=== PATIENT | male | born 1980 | race Hispanic/Latino ===

== ENCOUNTER 2018-08-09 07:10 | Emergency (ER) | payer SELFPAY ==
[2018-08-09] MEDS ORDERED: PANTOPRAZOLE 40 MG INJ ONE (07:32)
[2018-08-09] MEDS ORDERED: KETOROLAC 30 MG/ML INJ ONE (07:32)
[2018-08-09] MEDS ORDERED: NA CHLORIDE 0.9% 1,000 ML ONE (07:32)
[2018-08-09 07:43] LABS: Absolute Lymphocytes (CBC) 0.8 K/uL (0.7-4.9); Absolute Monocytes 0.6 K/uL (0.1-1.3); Absolute Neutrophil 5.4 K/uL (1.8-8.0); Basophils % 0.3 % (0-1.3); Eosinophils % 0.2 % (0-4.4); Hematocrit 43.9 % (39.6-49.0); Lymphocytes % 11.7 % (15.3-44.8); MCV 82.8 fL (80-100); MPV 9.2 fL (7.6-11.3); Monocytes % 8.8 % (3.3-12.3)
[2018-08-09 07:56] LABS: Albumin 3.5 g/dL (3.4-5.0); Bilirubin Direct 0.1 mg/dL (0-0.2); Bilirubin Total 0.4 mg/dL (0.2-1.0); Potassium 3.5 mmol/L (3.5-5.1); Protein, Total 7.8 g/dL (6.4-8.2)
--- NOTE | 2018-08-09 08:37 | RAD REPORT ---
EXAM DESCRIPTION: US - Abdomen Exam Limited - 08/09/2018 7:55 am CLINICAL HISTORY: Abdominal pain. COMPARISON: None. FINDINGS: Multiple gallstones are seen with small amount of sludge. The gallbladder wall is borderli ne thickened. The evaluation of the biliary tree is suboptimal IMPRESSION: Cholelithiasis. Borderline gallbladder wall thickening may indicate cholecystitis Suboptimal evaluation of the biliary tree
--- NOTE | 2018-08-09 09:02 | EDPHYS ---
Physician Documentation [facility] Name: Ja Ramirez Age: 38 yrs Sex: Male : 1980 Arrival Date: 08/09/2018 Time: 07:12 Bed 16 Private MD: ED Physician Rubio Salcido HPI: 08/09 07:29 This 38 yrs old Male presents to ER via Ambulatory with complaints of kb Abdominal Pain. 07:29 The patient presents with abdominal pain in the right upper quadrant. Onset: The kb symptoms/episode began/occurred this morning, at 03:00. The symptoms do not radiate. Associated signs and symptoms: Pertinent positives: diarrhea. The symptoms are described as constant, sharp. Modifying factors: The symptoms are alleviated by nothing, the symptoms are aggravated by pressure. Severity of pain: At its worst the pain was moderate in the emergency department the pain is unchanged. The patient has not experienced similar symptoms in the past. The patient has not recently seen a physician. Pt reports RUQ pain that woke him up at 0300. Had diarrhea for the last 2 days, now resolved. Denies similar symptoms in the past. Pt has not tried to eat or drink anything to determine if it makes pain worse. Pain the same in all positions.. Historical: - Allergies: 07:13 No Known Allergies; la1 - Home Meds: 07:13 None [Active]; la1 - PMHx: 07:13 None; la1 - PSHx: 07:13 None; la1 - Immunization history:: Adult Immunizations up to date. - Social history:: Smoking status: Patient/guardian denies using tobacco. - Ebola Screening: : No symptoms or risks identified at this time. ROS: 07:28 Constitutional: Negative for fever, chills, and weight loss, Cardiovascular: Negative kb for chest pain, palpitations, and edema, Respiratory: Negative for shortness of breath, cough, wheezing, and pleuritic chest pain, Back: Negative for injury and pain, : Negative for injury, bleeding, discharge, and swelling, MS/Extremity: Negative for injury and deformity, Skin: Negative for injury, rash, and discoloration, Neuro: Negative for headache, weakness, numbness, tingling, and seizure. 07:28 Abdomen/GI: Positive for abdominal pain, diarrhea, Negative for nausea and vomiting, constipation, abdominal cramps, abdominal distension. Exam: 07:28 Constitutional: This is a well developed, well nourished patient who is awake, alert, kb and in no acute distress. Head/Face: Normocephalic, atraumatic. Chest/axilla: Normal chest wall appearance and motion. Nontender with no deformity. No lesions are appreciated. Cardiovascular: Regular rate and rhythm with a normal S1 and S2. No gallops, murmurs, or rubs. Normal PMI, no JVD. No pulse deficits. Respiratory: Lungs have equal breath sounds bilaterally, clear to auscultation and percussion. No rales, rhonchi or wheezes noted. No increased work of breathing, no retractions or nasal flaring. Back: No spinal tenderness. No costovertebral tenderness. Full range of motion. Skin: Warm, dry with normal turgor. Normal color with no rashes, no lesions, and no evidence of cellulitis. MS/ Extremity: Pulses equal, no cyanosis. Neurovascular intact. Full, normal range of motion. Neuro: Awake and alert, GCS 15, oriented to person, place, time, and situation. Cranial nerves II-XII grossly intact. Motor strength 5/5 in all extremities. Sensory grossly intact. Cerebellar exam normal. Normal gait. 07:28 Abdomen/GI: Inspection: abdomen appears normal, Bowel sounds: normal, in all quadrants, Palpation: soft, in all quadrants, nontender, in the left upper quadrant, right lower quadrant and left lower quadrant, moderate abdominal tenderness, in the right upper quadrant. Vital Signs: 07:14 Pulse 86; Resp 16; Temp 99.2; Pulse Ox 98% on R/A; Weight 117.93 kg; Height 5 ft. 7 in. la1 (170.18 cm); Pain 8/10; 07:16 BP 128 / 81; la1 09:20 BP 122 / 87; Pulse 78; Resp 16; Temp 98.3; Pulse Ox 98% on R/A; la1 07:14 Body Mass Index 40.72 (117.93 kg, 170.18 cm) la1 MDM: 07:14 Patient medically screened. kb 07:28 Data reviewed: vital signs, nurses notes. Data interpreted: Pulse oximetry: on room air kb is 98 %. Interpretation: normal. 09:00 Data reviewed: I have discussed the patient's presentation/case with the attending Emergency Department Physician;. Counseling: I had a detailed discussion with the patient and/or guardian regarding: the historical points, exam findings, and any diagnostic results supporting the discharge/admit diagnosis, lab results, radiology results, the need for outpatient follow up, a general surgeon, to return to the emergency department if symptoms worsen or persist or if there are any questions or concerns that arise at home. ED course: Pain is resolved after toradol. Pt has no complaints at this time. Will discharge home to follow up with General Surgery. . 08/09 07:19 Order name: Basic Metabolic Panel kb 08/09 07:19 Order name: CBC with Diff kb 08/09 07:19 Order name: Hepatic Function; Complete Time: 08:08 kb 08/09 07:19 Order name: Lipase; Complete Time: 08:08 kb 08/09 07:20 Order name: Basic Metabolic Panel; Complete Time: 08:08 EDMS 08/09 07:20 Order name: CBC with Automated Diff; Complete Time: 08:08 EDMS 08/09 07:19 Order name: IV Saline Lock; Complete Time: 07:24 kb 08/09 07:19 Order name: Labs collected and sent; Complete Time: 07:24 kb 08/09 07:19 Order name: US Abdomen Limited; Complete Time: 08:42 kb Administered Medications: 07:43 Drug: NS 0.9% 1000 ml Route: IV; Rate: 1000 ml; Site: left antecubital; la1 09:21 Follow up: IV Status: Completed infusion la1 07:43 Drug: ProTONIX 40 mg Route: IVP; Site: left antecubital; la1 09:21 Follow up: Response: No adverse reaction la1 07:43 Drug: TORadol 30 mg Route: IVP; Site: left antecubital; la1 09:20 Follow up: Response: No adverse reaction la1 Disposition: 16:15 Co-signature as Attending Physician, Rubio Salcido MD I agree with the assessment and kdr plan of care. Disposition: 08/09/18 09:01 Discharged to Home. Impression: Cholelithiasis. - Condition is Stable. - Discharge Instructions: Cholelithiasis, Dbde-cr-Arcp. - Prescriptions for Bentyl 20 mg Oral Tablet - take 1 tablet by ORAL route every 6 hours As needed; 20 tablet. Zofran 4 mg Oral Tablet - take 1 tablet by ORAL route every 6 hours As needed; 20 tablet. Diclofenac Sodium 75 mg Oral Tablet, Delayed Release (E.C.) - take 1 tablet by ORAL route 2 times per day As needed; 30 tablet. - Medication Reconciliation Form, Thank You Letter, Antibiotic Education, Prescription Opioid Use form. - Follow up: Emergency Department; When: As needed; Reason: Worsening of condition. Follow up: Private Physician; When: 2 - 3 days; Reason: Recheck today's complaints, Continuance of care, Re-evaluation by your physician. Signatures: Dispatcher [employer] EDMS Nuzhat Garcia, TITLE INSURANCE EXAMINER-C TITLE INSURANCE EXAMINER-Ckb Rubio Salcido MD MD kdr Attema, Lee, RN RN la1 Corrections: (The following items were deleted from the chart) 09:21 09:01 08/09/2018 09:01 Discharged to Home. Impression: Cholelithiasis. Condition is la1 Stable. Forms are Medication Reconciliation Form, Thank You Letter, Antibiotic Education, Prescription Opioid Use. Follow up: Emergency Department; When: As needed; Reason: Worsening of condition. Follow up: Private Physician; When: 2 - 3 days; Reason: Recheck today's complaints, Continuance of care, Re-evaluation by your physician. kb
--- NOTE | 2018-08-09 09:02 | ER ---
Nurse's Notes [facility] Name: Ja Ramirez Age: 38 yrs Sex: Male : 1980 Arrival Date: 08/09/2018 Time: 07:12 Bed 16 Private MD: Diagnosis: Cholelithiasis Presentation: 08/09 07:13 Presenting complaint: Patient states: RUQ pain that woke me up last night, yesterday I la1 had headache and diarrhea. Transition of care: patient was not received from another setting of care. Onset of symptoms was August 09, 2018. Risk Assessment: Do you want to hurt yourself or someone else? Patient reports no desire to harm self or others. Initial Sepsis Screen: Does the patient meet any 2 criteria? No. Patient's initial sepsis screen is negative. Does the patient have a suspected source of infection? No. Patient's initial sepsis screen is negative. Care prior to arrival: None. 07:13 Method Of Arrival: Ambulatory la1 07:13 Acuity: BRENDAN 3 la1 Historical: - Allergies: 07:13 No Known Allergies; la1 - Home Meds: 07:13 None [Active]; la1 - PMHx: 07:13 None; la1 - PSHx: 07:13 None; la1 - Immunization history:: Adult Immunizations up to date. - Social history:: Smoking status: Patient/guardian denies using tobacco. - Ebola Screening: : No symptoms or risks identified at this time. Screenin:32 Abuse screen: Denies threats or abuse. Nutritional screening: No deficits noted. la1 Tuberculosis screening: No symptoms or risk factors identified. Fall Risk None identified. Assessment: 07:31 General: Appears uncomfortable, Behavior is calm. Pain: Complains of pain in right la1 upper quadrant. Neuro: Level of Consciousness is awake, alert, obeys commands, Oriented to person, place, time, situation. Cardiovascular: Capillary refill < 3 seconds Patient's skin is warm and dry. Respiratory: Airway is patent Respiratory effort is even, unlabored, Respiratory pattern is regular, symmetrical. GI: Abdomen is non-distended, obese, Bowel sounds present X 4 quads. Abd is soft X 4 quads Abdomen is tender to palpation in right upper quadrant Patient currently denies nausea, vomiting. : No signs and/or symptoms were reported regarding the genitourinary system. 08:50 Reassessment: No changes from previously documented assessment. Patient and/or family la1 updated on plan of care and expected duration. Pain level reassessed. Patient is alert, oriented x 3, equal unlabored respirations, skin warm/dry/pink. Vital Signs: 07:14 Pulse 86; Resp 16; Temp 99.2; Pulse Ox 98% on R/A; Weight 117.93 kg; Height 5 ft. 7 in. la1 (170.18 cm); Pain 8/10; 07:16 BP 128 / 81; la1 09:20 BP 122 / 87; Pulse 78; Resp 16; Temp 98.3; Pulse Ox 98% on R/A; la1 07:14 Body Mass Index 40.72 (117.93 kg, 170.18 cm) la1 ED Course: 07:12 Patient arrived in ED. as 07:13 Nuzhat Garcia FNP-C is [facility]. kb 07:13 Rubio Salcido MD is Attending Physician. kb 07:14 Triage completed. la1 07:15 Bud Falcon, RN is Primary Nurse. la1 07:15 Arm band placed on right wrist. la1 07:32 Call light in reach. la1 07:33 No provider procedures requiring assistance completed. Inserted saline lock: 20 gauge la1 in right antecubital area, using aseptic technique. Blood collected. 07:55 US Abdomen Limited In Process Unspecified. EDMS 09:19 IV discontinued, intact, bleeding controlled, No redness/swelling at site. Pressure la1 dressing applied. Administered Medications: 07:43 Drug: NS 0.9% 1000 ml Route: IV; Rate: 1000 ml; Site: left antecubital; la1 09:21 Follow up: IV Status: Completed infusion la1 07:43 Drug: ProTONIX 40 mg Route: IVP; Site: left antecubital; la1 09:21 Follow up: Response: No adverse reaction la1 07:43 Drug: TORadol 30 mg Route: IVP; Site: left antecubital; la1 09:20 Follow up: Response: No adverse reaction la1 Outcome: 09:01 Discharge ordered by . kb 09:19 Discharged to home ambulatory. la1 09:19 Condition: stable 09:19 Discharge instructions given to patient, Instructed on discharge instructions, follow up and referral plans. medication usage, Demonstrated understanding of instructions, follow-up care, medications, Prescriptions given X 2. 09:21 Patient left the ED. la1 Signatures: Dispatcher [employer] Nuzhat Angela, CHILD PSYCHIATRIST-C CODY-Lilia Blakely Lee, RN RN la1
== END 2018-08-09 09:21 | disposition home or self-care (01) ==
LOC: ER 07:10
DX: K80.20 Calculus of gallbladder without cholecystitis without obstruction (principal)
CPT/HCPCS: 36415; 76705; 80048; 80076; 83690; 85025; 96361; 96374; 96375; 99284; C9113; J7030